=== PATIENT | female | born 1975 | race Caucasian/White ===

== ENCOUNTER 2018-12-05 10:30 | Emergency (ER) | payer BC ==
--- NOTE | 2018-12-05 10:39 | UC ---
Lower Extremity/Ankle HPI - HPI Summary HPI Summary: 43-year-old female who stepped out of a mak[employer] potty yesterday when she was at a [employer] and injured her left foot. She states alcohol was involved. She denies any other injury. - History of Current Complaint Chief Complaint: UCLowerExtremity Stated Complaint: LEFT FOOT INJURY Time Seen by Provider: 12/05/18 10:32 Hx Obtained From: Patient ?: No Onset/Duration: Sudden Onset Severity Initially: Mild Severity Currently: Mild Aggravating Factor(s): Ambulation Alleviating Factor(s): Rest Able to Bear Weight: Yes - Allergies/Home Medications Allergies/Adverse Reactions: Allergies Allergy/AdvReac Type Severity Reaction Status Date / Time codeine Allergy Abdominal Verified 12/05/18 10:46 Pain Home Medications: Home Medications NK [No Home Medications Reported] 12/05/18 [History Confirmed 12/05/18] PMH/Surg Hx/FS Hx/Imm Hx Previously Healthy: Yes Review of Systems All Other Systems Reviewed And Are Negative: Yes Constitutional: Positive: Negative Motor: Positive: Negative Neurovascular: Positive: Negative Musculoskeletal: Positive: Other: - Mild bruising to the lateral portion of the left foot dorsal aspect. Is Patient Immunocompromised?: No Physical Exam Triage Information Reviewed: Yes Appearance: Well-Appearing, No Pain Distress, Well-Nourished Vital Signs Reviewed: Yes Musculoskeletal: Positive: Strength Intact, ROM Intact, No Edema, Other: - Good peripheral pulses neuro sensation and capillary refill. Mild bruising to the lateral dorsum of the left foot with pain on palpation at the base of the fifth metatarsal. Achilles is intact. Good ankle stability without pain on palpation. Neurological Exam: Normal Psychological Exam: Normal Skin Exam: Normal Lower Extremity Course/Dx - Course Course Of Treatment: Left foot x-ray:REPORT: #. Nondisplaced transverse fracture through the proximal fifth metatarsal with extension to the tarsometatarsal articulation at the far medial margin. Negative for additional fracture or articular malalignment. Mild overlying soft tissue swelling. IMPRESSION: #. Fifth metatarsal tuberosity avulsion fracture (zone 1) without displacement. A cam boot was applied. Patient's to follow-up with the orthopedist by telephone tomorrow to make an appointment for follow-up. - Differential Dx/Diagnosis Provider Diagnosis: Metatarsal fracture Discharge - Sign-Out/Discharge Documenting (check all that apply): Patient Departure All imaging exams completed and their final reports reviewed: Yes - Discharge Plan Condition: Fair Disposition: HOME Patient Education Materials: Foot Fracture in Adults (ED) Referrals: Marta Moreira [Primary Care Provider] - Kevin Erazo MD [Medical Doctor] - Additional Instructions: Keep the cam boot on at all times, elevate as much as possible, apply ice intermittently throughout the day today and tomorrow. May take Tylenol for pain. May ambulate with the cam boot as pain permits. Follow-up with the orthopedist, call tomorrow and make an appointment. You have a non-displaced fracture at the base of the fifth metatarsal left foot. - Billing Disposition and Condition Condition: FAIR Disposition: Home - Attestation Statements Provider Attestation: I was available for consult. This patient was seen by the [facility]. I reviewed the x -rays and plan of care. The patient was not seen by or examined by ct -Santi Rubi MD
[2018-12-05 10:46] VITALS: BP 141/111
== END 2018-12-05 11:40 | disposition home or self-care (01) ==
LOC: UCEAST 10:30
DX: S92.352A Displaced fracture of fifth metatarsal bone, left foot, initial encounter for closed fracture (principal); W18.30XA Fall on same level, unspecified, initial encounter; Y92.89 Other specified places as the place of occurrence of the external cause; Z88.5 Allergy status to narcotic agent
CPT/HCPCS: 99202; G0463